=== PATIENT | male | born 1980 | race African-American/Black ===

== ENCOUNTER 2016-10-18 15:50 | Emergency (ER) | payer OTHER ==
[~2016-10-18] VITALS: Ht 190.5 cm; Wt 84.5 kg
[2016-10-18 15:58] VITALS: TEMP 37.4; Ht 190.5 cm; Wt 84.5 kg
[2016-10-18] MEDS ORDERED: SODIUM CHLORIDE 0.9% 1000ML 1,000 ML IV STA (16:15)
[2016-10-18] MEDS ORDERED: AMPICILLIN/SULBACTAM SOD INJ 3,000 MG in SODIUM CHLORIDE 0.9% 100ML 100 ML IV STA (16:15)
[2016-10-18] MEDS ORDERED: METHYLPREDNISOLONE 125 MG VIAL IV STA (16:15)
[2016-10-18] MEDS ORDERED: FLUO40CA8 PO (16:22)
[2016-10-18] MEDS ORDERED: GUAN1TAB PO (16:22)
[2016-10-18] MEDS ORDERED: OPTIRAY 320 IV PRN (16:30)
[2016-10-18] MEDS ORDERED: PHEN-601 PO (16:38)
[2016-10-18 16:42] LABS: BASO % 0.3 %; BASO ABS # 0.02 K/uL (0-0.2); COMPLETE YES; EOS % 1.4 %; HEMATOCRIT 40.2 % (42-52); IG% 0.3 %; LYMPH % 23.9 %; LYMPH ABS # 1.86 K/uL (1.2-3.4); MEAN CELL VOLUME 79.6 fL (80-100); MEAN CORPUSCULAR HEMOGLOBIN 27.3 pg (25-34); MEAN CORPUSCULAR HGB CONC 34.3 g/dl (32-36); MEAN PLATELET VOLUME 9.3 fL (7.4-10.4); MONO % 12.3 %; NEUT % 61.8 %; PLATELET COUNT 265 K/uL (130-400); RED BLOOD COUNT 5.05 M/uL (4.7-6.1); WHITE BLOOD COUNT 7.79 K/uL (4.8-10.8)
[2016-10-18 17:01] LABS: BUN/CREATININE RATIO 12.3 (10-20); CALCIUM 8.9 mg/dl (8.5-10.1); CREATININE 1.2 mg/dl (0.60-1.40); POTASSIUM 3.4 mmol/L (3.5-5.1)
--- NOTE | 2016-10-18 17:53 | DIAGNOSTIC IMAGING REPORT ---
CT soft tissue neck SOFT TISSUE NECK WITH CLINICAL HISTORY: right peritonsillar swelling, difficulty breathing dyspnea TECHNIQUE: Transaxial acquisition with multi axial reformatted images COMPARISON STUDY: None FINDINGS: Generalized right peritonsillar edematous change. Moderate displacement of the airway to the left. Uvula is unremarkable. Colonic and subglottic regions are unremarkable. Salivary glands are normal. The small reactive cervical nodes. Moderate mucosal thickening right maxillary sinus. To early phlegmon is type collections of the right tonsillar region measuring 1.5 and 1.0 cm respectively. IMPRESSION: 1. Rather significant right peritonsillar and tonsillar edematous change with moderate airway compromise and displacement of the hypopharyngeal airway to the left. 2. The area of edematous changes demonstrates 2 somewhat low density phlegmon type collections measuring 1.5 and 1.0 cm 3. Mild reactive cervical adenopathy. 4. Study is otherwise negative. Electronically signed by: Vito Hernández M.D. 10/18/2016 5:51 PM Dictated Date/Time: 10/18/2016 5:46 PM
[2016-10-18] MEDS ORDERED: MoRPHine SULFATE 10 MG/ML CARP/VIAL IV STA (18:32)
[2016-10-18] MEDS ORDERED: MoRPHine SULFATE 4 MG/ML 1 ML CARP\\VIAL ONE (18:38)
[2016-10-18] MEDS ORDERED: MoRPHine SULFATE 2 MG/ML CARP ONE (18:38)
[2016-10-18] MEDS ORDERED: LIDOCAINE/EPINEPHRINE 1% 20 ML VIAL INFIL ONE (18:45)
--- NOTE | 2016-10-18 19:11 | EMERGENCY ROOM VISIT NOTE ---
History First contact with patient: 16:01 Chief Complaint: THROAT PAIN/INJURY Stated Complaint: DIZZINESS, EAR PAIN, THROAT AND GLANDS SWOLLEN History of Present Illness The patient is a 36 year old male who presents to the Emergency Room with complaints of sore throat, earaches and dizziness. The patient states he has had a sore throat for 3 days. He has had difficulty swallowing and difficulty breathing due to the pain. He has not seen any other medical providers regarding this. He rates his overall discomfort a 7/10. He states that his voice sounds different. He denies any trismus. He also reports he has pain in both of his years and some pain in the right side of his neck. He denies any fevers/chills, cough, nausea, vomiting, or headaches. Review of Systems A complete 10-point Review of Systems was discussed with the patient, with pertinent positives and negatives listed in the History of Present Illness. All remaining Review of Systems questions can be considered negative unless otherwise specified. Past Medical/Surgical History Medical Problems: (1) Boxer's metacarpal fracture, neck, closed (2) Tonsillitis (3) Ulcer Family History Cancer Diabetes mellitus Hypertension Social History Smoking Status: Current Every Day Smoker Alcohol Use: none Marital Status: , in relationship Housing Status: lives with significant other Occupation Status: unemployed Current/Historical Medications Scheduled Clindamycin Hcl (Cleocin), 300 MG PO QID Phenylephrine W/ Acetaminophen (Tylenol Sinus Congestion), 2 TAB PO Q4 Prednisone Tab (Prednisone), 10 MG PO UD Allergies Coded Allergies: No Known Allergies (Unverified , 10/18/16) Physical Exam Vital Signs Date Time Temp Pulse Resp B/P Pulse Ox O2 Delivery O2 Flow Rate FiO2 10/18/16 19:33 75 16 145/113 99 Room Air 10/18/16 16:00 100 Room Air 10/18/16 15:58 37.4 87 18 96 Room Air Physical Exam VITALS: Vitals are noted on the nurse's note and reviewed by myself. Vital signs stable. GENERAL: This is a 36-year-old male, in no acute distress, nondiaphoretic, well- developed well-nourished. SKIN: The skin was without rashes. EARS: External auditory canals clear, tympanic membranes pearly wolf without erythema or effusion bilaterally. EYES: Pupils equal round and reactive to light and accommodation. MOUTH: Mucous membranes moist. There is significant enlargement of the right tonsillar region with uvula deviation to the left. There are no exudates present. The airway is patent. NECK: Supple without nuchal rigidity. There is mild edema and tenderness of the right side of the neck. HEART: Regular rate and rhythm without murmurs gallops or rubs. LUNGS: Clear to auscultation bilaterally without wheezes, rales or rhonchi. ABDOMEN: Positive bowel sounds x 4. Soft, nontender, without masses or organomegaly. NEURO: Patient was alert and oriented to person place and time. Medical Decision & Procedures ER Provider Diagnostic Interpretation: CT soft tissue neck SOFT TISSUE NECK WITH CLINICAL HISTORY: right peritonsillar swelling, difficulty breathing dyspnea TECHNIQUE: Transaxial acquisition with multi axial reformatted images COMPARISON STUDY: None FINDINGS: Generalized right peritonsillar edematous change. Moderate displacement of the airway to the left. Uvula is unremarkable. Colonic and subglottic regions are unremarkable. Salivary glands are normal. The small reactive cervical nodes. Moderate mucosal thickening right maxillary sinus. To early phlegmon is type collections of the right tonsillar region measuring 1.5 and 1.0 cm respectively. IMPRESSION: 1. Rather significant right peritonsillar and tonsillar edematous change with moderate airway compromise and displacement of the hypopharyngeal airway to the left. 2. The area of edematous changes demonstrates 2 somewhat low density phlegmon type collections measuring 1.5 and 1.0 cm 3. Mild reactive cervical adenopathy. 4. Study is otherwise negative. Laboratory Results 10/18/16 16:30 Red Blood Count 5.05, Mean Corpuscular Volume 79.6, Mean Corpuscular Hemoglobin 27.3, Mean Corpuscular Hemoglobin Concent 34.3, Mean Platelet Volume 9.3, Neutrophils (%) (Auto) 61.8, Lymphocytes (%) (Auto) 23.9, Monocytes (%) (Auto) 12.3, Eosinophils (%) (Auto) 1.4, Basophils (%) (Auto) 0.3, Neutrophils # (Auto ) 4.82, Lymphocytes # (Auto) 1.86, Monocytes # (Auto) 0.96, Eosinophils # (Auto ) 0.11, Basophils # (Auto) 0.02 10/18/16 16:30 Test 10/18/16 16:30 White Blood Count 7.79 K/uL (4.8-10.8) Red Blood Count 5.05 M/uL (4.7-6.1) Hemoglobin 13.8 g/dL (14.0-18.0) Hematocrit 40.2 % (42-52) Mean Corpuscular Volume 79.6 fL (80-100) Mean Corpuscular Hemoglobin 27.3 pg (25-34) Mean Corpuscular Hemoglobin Concent 34.3 g/dl (32-36) Platelet Count 265 K/uL (130-400) Mean Platelet Volume 9.3 fL (7.4-10.4) Neutrophils (%) (Auto) 61.8 % Lymphocytes (%) (Auto) 23.9 % Monocytes (%) (Auto) 12.3 % Eosinophils (%) (Auto) 1.4 % Basophils (%) (Auto) 0.3 % Neutrophils # (Auto) 4.82 K/uL (1.4-6.5) Lymphocytes # (Auto) 1.86 K/uL (1.2-3.4) Monocytes # (Auto) 0.96 K/uL (0.11-0.59) Eosinophils # (Auto) 0.11 K/uL (0-0.5) Basophils # (Auto) 0.02 K/uL (0-0.2) RDW Standard Deviation 39.9 fL (36.4-46.3) RDW Coefficient of Variation 13.9 % (11.5-14.5) Immature Granulocyte % (Auto) 0.3 % Immature Granulocyte # (Auto) 0.02 K/uL (0.00-0.02) Anion Gap 10.0 mmol/L (3-11) Est Creatinine Clear Calc Drug Dose 100.7 ml/min Estimated GFR () 89.0 Estimated GFR (Non- 76.8 BUN/Creatinine Ratio 12.3 (10-20) Calcium Level 8.9 mg/dl (8.5-10.1) Monoscreen NEG (NEG) Medications Administered Medications (Trade) Dose Ordered Sig/Shaun Route Start Time Stop Time Status Last Admin Dose Admin Sodium Chloride 1,000 ml @ 999 mls/hr Q1H1M STAT IV 10/18/16 16:15 10/18/16 17:15 DC 10/18/16 16:41 999 MLS/HR Ampicillin Sodium/ Sulbactam Sodium/ Sodium Chloride (Unasyn Inj/Nss 100ml) 108 ml @ 200 mls/hr NOW STAT IV 10/18/16 16:15 10/18/16 16:47 DC 10/18/16 16:41 200 MLS/HR Methylprednisolone Sodium Succinate (Solu-Medrol IV) 125 mg NOW STAT IV 10/18/16 16:15 10/18/16 16:20 DC 10/18/16 16:41 125 MG Morphine Sulfate (MoRPHine SULFATE INJ) 2 mg STK-MED ONCE .ROUTE 10/18/16 18:38 10/18/16 18:40 DC 10/18/16 18:52 2 MG Morphine Sulfate (MoRPHine SULFATE INJ) 4 mg STK-MED ONCE .ROUTE 10/18/16 18:38 10/18/16 18:40 DC 10/18/16 18:49 4 MG Medical Decision Differential diagnosis includes peritonsillar abscess, retropharyngeal abscess, pharyngitis, cellulitis, among others. The patient was evaluated as above. Labs were drawn and IV access was obtained. Imaging studies were performed and read by radiology as above. The patient was medicated as above. The patient was reassessed multiple times during their stay in the emergency department and remained in stable condition. The patient is a 36-year-old male who presents today complaining of sore throat. Physical exam revealed a significantly swollen Labs right tonsillar region consistent with possible peritonsillar abscess. Labs were unremarkable. The patient was given a dose of Unasyn and Solu-Medrol. He was given morphine for pain. Due to the patient's complaint of difficulty breathing and swelling of the neck, a CT scan of the neck was performed with IV contrast. This did show evidence of swelling and airway compromise, but no obvious abscess. I did speak with Dr. Brian, the on-call ENT surgeon, who reviewed the CT scan and did feel that this represented an abscess. He evaluated the patient and performed incision and drainage of a right peritonsillar abscess. Please see his dictation for further information. He felt the patient could be discharged home with close follow-up in the office tomorrow. The patient was placed on clindamycin and prednisone per his recommendations. Based on the patient's presentation, lab results, and imaging studies, I feel the patient is stable for outpatient treatment. The patient's case was reviewed with Dr. Ramirez, ED attending physician, who agreed with my assessment and treatment plan. Discharge instructions were reviewed with the patient. The patient verbalized understanding of my assessment and treatment plan and was discharged home in good condition. Impression Primary Impression: Peritonsillar abscess Departure Information Dispostion Home / Self-Care Condition GOOD Prescriptions Prednisone Tab (PREDNISONE) 10 Mg Tab 10 MG PO UD, #42 TAB 40 mg po BID 2 days, 30 mg BID 2 days, 20 mg BID x2 days, 10 mg BID x2 days, 10mg QAM x2 days Prov: Kaelyn Lomeli PA-C 10/18/16 Clindamycin Hcl (CLEOCIN) 300 Mg Cap 300 MG PO QID for 14 Days, #56 CAP Prov: Kaelyn Lomeli PA-C 10/18/16 Referrals No Doctor, Assigned (PCP) Raymond Brian MD Patient Instructions My [facility] Additional Instructions You were prescribed clindamycin to be taken 4 times daily for 14 days. This is an antibiotic. All antibiotics have the potential to cause diarrhea. Stop this medication and contact a medical provider if you were to develop any significant adverse side effects including: wheezing, shortness of breath, passing out, vomiting, or a diffuse rash. Always take antibiotics as directed and COMPLETE the ENTIRE course regardless of the improvement of your symptoms. You have been prescribed Prednisone. It is best to take steroids early in the morning as PM dosing can affect your sleeping patterns. For pain control, you can use the following [id number] medicines (if >12 yo): - Regular strength (325mg/tab) Tylenol (acetaminophen) 2 tabs every 4-6 hours as needed. Do not exceed 12 tablets in a 24 hour period. Avoid taking more than 4 grams (4000 mg) of Tylenol per day. This includes any other sources of acetaminophen you may take on a regular basis. - Regular strength (200 mg/tab) Advil (ibuprofen) 1-2 tabs every 4-6 hours as needed. Do not exceed a dose of 3200 mg per day. Follow-up with Dr. Brian tomorrow in the office at 1 PM. Return to the emergency department with any difficulty breathing, or any other new/concerning symptoms.
[2016-10-18] MEDS ORDERED: PRED10TA PO (19:20)
[2016-10-18] MEDS ORDERED: CLIN300C2 PO (19:20)
[2016-10-18 19:33] VITALS: BP 145/113; PULSE 75; O2SAT 99
--- NOTE | 2016-10-19 00:23 | ENT CONSULTATION ---
DATE OF CONSULTATION: 10/18/2016 I have been asked by Dr. De La Rosa as well as physician program assistant, Kaelyn Lomeli, to evaluate this patient with possible right peritonsillar abscess. HISTORY OF PRESENT ILLNESS: The patient is a 36-year-old male, with a 3 to 4-day history of right-sided sore throat with referred otalgia, odynophagia, dysphagia and muffled voice, who presented to the [facility] Emergency Room and a CT scan of the neck with IV contrast was obtained, which revealed a possible right peritonsillar abscess with 2 fluid collections, measuring 1.5 cm and 1 cm superiorly and inferiorly respectively. The patient did not have any antibiotics or steroids prior to presentation to the Emergency Room. He has no history of peritonsillar abscess in the past or history of recurrent strep throat. ALLERGIES: No known drug allergies. MEDICATIONS: Upon admission, [id number] Tylenol Cold and Sinus. PAST MEDICAL HISTORY: None. PAST SURGICAL HISTORY: Status post left knee surgery. FAMILY HISTORY: Noncontributory. No bleeding disorders or malignant hyperthermia. SOCIAL HISTORY: The patient is and in a relationship and lives with his significant other. He is currently unemployed. He smokes 1 pack per day and has done so for 20 years. He drinks alcohol occasionally. He denies illicit drug use. PHYSICAL EXAMINATION: GENERAL: This is an -Finnish male, in no acute distress, with no stertor or stridor, but with a muffled voice. ENT: External auditory canals and tympanic membranes are clear bilaterally. Nasal examination reveals moderate bilateral inferior turbinate hypertrophy and no significant septal deviation. Oral cavity, oropharyngeal examination reveals mild trismus. He has a 4+ right tonsil and a 2 to 3+ left tonsil with right peritonsillar edema and uvular deviation to the left. There is an exudate overlying the right tonsil. There is tender upper jugular digastric lymphadenopathy on the right-hand side. NEUROLOGIC: Cranial nerves II-XII are grossly intact. The patient is awake, alert and oriented x3. PROCEDURE NOTE: After verbally obtaining informed consent, the oral cavity and oropharynx were anesthetized with Cetacaine spray. After allowing adequate time for anesthesia, 1.5 mL of 1% lidocaine with 1:100,000 epinephrine was used to inject the right peritonsillar space. An 18-gauge needle on a 10-mL syringe was then used to aspirate approximately 2 mL of purulent material, which was sent off for Gram stain and culture. A #11 scalpel was then used to make a transverse incision in the soft palate. Further lidocaine was instilled through the soft palate transverse incision. A curved tonsil clamp was then used to spread the right peritonsillar space and approximately 1-2 more mL of purulent material was obtained. The patient did have significant amount of oozing of blood from the inflammation, but then this stopped. Estimated blood loss was 10 mL. The patient stated that he was "50% better" after the procedure. IMPRESSION AND RECOMMENDATIONS: Right peritonsillar abscess, status post incision and drainage. I feel like the patient can be discharged to home on appropriate antibiotic therapy of clindamycin 300 mg p.o. q 6 hours for 14 days and prednisone 40 mg p.o. b.i.d. for 2 days, followed by 30 mg p.o. b.i.d. x2 days, followed by 20 mg p.o. b.i.d. for 2 days, followed by 10 mg p.o. b.i.d. for 2 days, followed by 10 mg daily for 2 days. I would like to see him back in my office tomorrow at 1:00 p.m. for followup. The patient will call sooner, if he has any worsening symptomatology. This plan was discussed with Kaelyn Lomeli.
== END 2016-10-18 19:43 | disposition home or self-care (01) ==
LOC: C.EDB 15:51 → C.EDD 19:43
DX: J36 Peritonsillar abscess (principal); F17.210 Nicotine dependence, cigarettes, uncomplicated

== ENCOUNTER 2016-12-25 09:08 | Emergency (ER) | payer OTHER ==
[~2016-12-25] VITALS: Ht 190.5 cm; Wt 84.4 kg
[~2016-12-25 09:08] MED LIST: PHEN-601 PO; PRED10TA PO
[2016-12-25 09:12] VITALS: TEMP 36.5; Ht 190.5 cm; Wt 84.4 kg
[2016-12-25] MEDS ORDERED: SODIUM CHLORIDE 0.9% 1000ML 1,000 ML IV STA (09:24)
[2016-12-25 09:59] LABS: BASO % 0.3 %; BASO ABS # 0.01 K/uL (0-0.2); COMPLETE YES; EOS % 5.5 %; HEMATOCRIT 39.2 % (42-52); LYMPH % 46.4 %; LYMPH ABS # 1.78 K/uL (1.2-3.4); MEAN CELL VOLUME 82.4 fL (80-100); MEAN CORPUSCULAR HEMOGLOBIN 27.5 pg (25-34); MEAN CORPUSCULAR HGB CONC 33.4 g/dl (32-36); MEAN PLATELET VOLUME 9.6 fL (7.4-10.4); MONO % 13.8 %; PLATELET COUNT 244 K/uL (130-400); RED BLOOD COUNT 4.76 M/uL (4.7-6.1); WHITE BLOOD COUNT 3.84 K/uL (4.8-10.8)
[2016-12-25 10:16] LABS: BUN/CREATININE RATIO 8.2 (10-20); CALCIUM 8.6 mg/dl (8.5-10.1); CREATININE 1.2 mg/dl (0.60-1.40); POTASSIUM 3.8 mmol/L (3.5-5.1)
--- NOTE | 2016-12-25 10:17 | DIAGNOSTIC IMAGING REPORT ---
NECK/THYROID ULTRASOUND HISTORY: anterior throat pain COMPARISON: Neck CT 10/18/2016. FINDINGS: No sonographic abnormality within the right anterior neck at the patient's area of pain. Normal thyroid gland. No lymphadenopathy or fluid collections identified. IMPRESSION: No sonographic abnormality within the neck. Electronically signed by: Pastor Sow M.D. 12/25/2016 10:16 AM Dictated Date/Time: 12/25/2016 10:14 AM
[2016-12-25 10:26] LABS: THYROID STIMULATING HORMONE 0.855 uIu/ml (0.300-4.500)
[2016-12-25 10:57] VITALS: BP 153/98; PULSE 59; O2SAT 100
--- NOTE | 2016-12-25 17:50 | EMERGENCY ROOM VISIT NOTE ---
History First contact with patient: : Chief Complaint: THROAT PAIN/INJURY Stated Complaint: SORE THROAT/HX ABSCESS History of Present Illness The patient is a 36 year old -[place] male who presents to the Emergency Room with complaints of a sore throat and feeling dehydrated. He has had a sore throat for the last several days. It has become worse with time. He is getting concerned because he had a peritonsillar abscess in September that required drainage. He denies any fevers but does have chills. No sweats. No cough, shortness of breath, or abdominal pain. He points to the anterior throat as his area of worst discomfort. No treatment yet. His girlfriend states that he has significant intolerance to cold. Patient also notes that his younger brother has thyroid problems and he is concerned he may also have thyroid issues. Review of Systems REVIEW OF SYSTEM: HEENT: No dizziness, visual problems, hearing loss, or tinnitus. No oral lesions are present. LYMPH: No adenopathy. PULMONARY: No cough, shortness of breath, sputum production or hemoptysis. CARDIOVASCULAR: No chest pain, palpitations, shortness of breath or peripheral edema. GASTROINTESTINAL: No diarrhea, constipation, nausea, vomiting, or abdominal pain. GENITOURINARY: No dysuria, frequency, urgency or nocturia. NEUROLOGIC: No weakness, muscle tenderness, epilepsy or history of neurological problems. MUSCULOSKELETAL: No history of joint tenderness/swelling. No history of arthritis or arthralgias. SKIN: No rashes or lesions. PSYCHIATRIC: No history of depression or mental illness. ENDOCRINE: No history of diabetes, thyroid disorders, or abnormal hair growth. Past Medical/Surgical History Medical Problems: (1) Boxer's metacarpal fracture, neck, closed (2) Tonsillitis (3) Ulcer Family History Cancer Diabetes mellitus Hypertension Social History Smoking Status: Current Every Day Smoker Smokeless Tobacco Use: No Alcohol Use: none Drug Use: none Marital Status: , in relationship Housing Status: lives with significant other Occupation Status: unemployed Current/Historical Medications No Active Prescriptions or Reported Meds Allergies Coded Allergies: No Known Allergies (Unverified , 12/25/16) Physical Exam Vital Signs Date Time Temp Pulse Resp B/P Pulse Ox O2 Delivery O2 Flow Rate FiO2 12/25/16 10:57 59 18 153/98 100 12/25/16 09:12 36.5 64 18 158/95 97 Room Air Pain Rating (0-10): 7.0 Physical Exam Gen.: Well-developed, well-nourished, young -[place] male, in no acute distress. Laying on a bed. Alert and oriented. Skin:Warm and dry with good turgor. No rashes or lesions. No ecchymosis or erythema. The patient is not diaphoretic. No abrasions. HEENT: Normocephalic atraumatic. Eyes PERRLA, EOMI. No conjunctiva or scleral injection. Ears TMs intact bilaterally with good light reflexes. No erythema or bulging. No hemotympanum. Canals are patent. Nares patent bilaterally without turbinate enlargement. No significant drainage. No epistaxis. Oropharynx with erythema but no exudate. Uvula midline, oral mucosa moist. Tonsils are not enlarged. No lesions present. Lymphatics are palpated with anterior chain enlargement and tenderness. No posterior chain enlargement or tenderness. Poor dentition with multiple decaying teeth. No indication of abscess. Heart: Heart RRR. No MGR. No carotid bruit. Peripheral pulses are 2+. Lungs: Lungs are clear to auscultation. No crackles rhonchi or wheezing. Good air movement. The patient is able to take a deep breath. Musculoskeletal: Gross motor function of the upper and lower extremities is intact and unremarkable. Thyroid: Palpated without nodularity. It does seem broad and perhaps slightly larger than usual. Medical Decision & Procedures ER Provider Diagnostic Interpretation: Ultrasound of the soft tissues of the neck was obtained. This was read by radiology as unremarkable for any acute changes. No nodularity. No edema. Laboratory Results 12/25/16 09:40 Red Blood Count 4.76, Mean Corpuscular Volume 82.4, Mean Corpuscular Hemoglobin 27.5, Mean Corpuscular Hemoglobin Concent 33.4, Mean Platelet Volume 9.6, Neutrophils (%) (Auto) 34.0, Lymphocytes (%) (Auto) 46.4, Monocytes (%) (Auto) 13.8, Eosinophils (%) (Auto) 5.5, Basophils (%) (Auto) 0.3, Neutrophils # (Auto ) 1.31, Lymphocytes # (Auto) 1.78, Monocytes # (Auto) 0.53, Eosinophils # (Auto ) 0.21, Basophils # (Auto) 0.01 12/25/16 09:40 Test 12/25/16 09:40 White Blood Count 3.84 K/uL (4.8-10.8) Red Blood Count 4.76 M/uL (4.7-6.1) Hemoglobin 13.1 g/dL (14.0-18.0) Hematocrit 39.2 % (42-52) Mean Corpuscular Volume 82.4 fL (80-100) Mean Corpuscular Hemoglobin 27.5 pg (25-34) Mean Corpuscular Hemoglobin Concent 33.4 g/dl (32-36) Platelet Count 244 K/uL (130-400) Mean Platelet Volume 9.6 fL (7.4-10.4) Neutrophils (%) (Auto) 34.0 % Lymphocytes (%) (Auto) 46.4 % Monocytes (%) (Auto) 13.8 % Eosinophils (%) (Auto) 5.5 % Basophils (%) (Auto) 0.3 % Neutrophils # (Auto) 1.31 K/uL (1.4-6.5) Lymphocytes # (Auto) 1.78 K/uL (1.2-3.4) Monocytes # (Auto) 0.53 K/uL (0.11-0.59) Eosinophils # (Auto) 0.21 K/uL (0-0.5) Basophils # (Auto) 0.01 K/uL (0-0.2) RDW Standard Deviation 44.2 fL (36.4-46.3) RDW Coefficient of Variation 14.6 % (11.5-14.5) Immature Granulocyte % (Auto) 0.0 % Immature Granulocyte # (Auto) 0.00 K/uL (0.00-0.02) Anion Gap 5.0 mmol/L (3-11) Est Creatinine Clear Calc Drug Dose 100.6 ml/min Estimated GFR () 89.0 Estimated GFR (Non- 76.8 BUN/Creatinine Ratio 8.2 (10-20) Calcium Level 8.6 mg/dl (8.5-10.1) Thyroid Stimulating Hormone (TSH) 0.855 uIu/ml (0.300-4.500) CBC, PRP, and TSH were obtained. They are all unremarkable. Rapid strep was negative. Back up cultures were sent. Medications Administered Medications (Trade) Dose Ordered Sig/Shaun Route Start Time Stop Time Status Last Admin Dose Admin Sodium Chloride (Nss 1000ml) 1,000 ml @ 999 mls/hr Q1H1M STAT IV 12/25/16 09:24 12/25/16 10:24 DC 12/25/16 09:42 999 MLS/HR 1 L normal sterile saline IV bolus. ED Course Patient was educated regarding today's findings. Conservative care measures were discussed. IV was established. Labs were obtained. He was hydrated with 1 L normal sterile saline IV bolus. Ultrasound of the neck was obtained. This was unremarkable. Rapid strep obtained today was negative. Back up cultures were sent. He'll be called if they are positive. Patient was reassured that I do not suspect thyroid issues at this time. I do not suspect an abscess. Possibility of viral pharyngitis versus strep pharyngitis were discussed. Symptomatic treatment was recommended. Continue Tylenol and Motrin every 6 hours as needed. Sore throat handout was provided. Medical Decision Possibility of strep pharyngitis, viral pharyngitis, peritonsillar abscess, sinusitis, thyroglossal duct cyst, hypothyroidism, hyperthyroidism, goiter, and infected dentition were all considered. Impression Primary Impression: Pharyngitis, acute Departure Information Dispostion Home / Self-Care Condition GOOD Prescriptions No Active Prescriptions or Reported Meds Forms WORK / SCHOOL INSTRUCTIONS, HOME CARE DOCUMENTATION FORM, MOTRIN USE, TYLENOL USE, IMPORTANT VISIT INFORMATION Patient Instructions My [facility] Additional Instructions Maintain hydration Cepacol lozenges may improve your comfort Tylenol and Motrin every 6 hours as needed for discomfort You will be called within 48 hours if the strep test returns positive Follow-up with your PCP as needed
== END 2016-12-25 10:59 | disposition home or self-care (01) ==
LOC: C.EDB 09:09 → C.EDA 10:59
DX: J02.9 Acute pharyngitis, unspecified (principal); F17.200 Nicotine dependence, unspecified, uncomplicated; Z87.81 Personal history of (healed) traumatic fracture; Z87.19 Personal history of other diseases of the digestive system; Z80.9 Family history of malignant neoplasm, unspecified; Z83.3 Family history of diabetes mellitus; Z82.49 Family history of ischemic heart disease and other diseases of the circulatory system

== ENCOUNTER 2017-02-12 19:15 | Emergency (ER) | payer OTHER ==
[~2017-02-12] VITALS: Ht 190.5 cm; Wt 82.9 kg
[2017-02-12 19:18] VITALS: TEMP 36.6; Ht 190.5 cm; Wt 82.9 kg
[2017-02-12] MEDS ORDERED: FAMOTIDINE 20MG/102 ML D5W IV STA (19:29)
[2017-02-12] MEDS ORDERED: DiphenhydrAMINE HCL 50 MG/ML VIAL IV STA (19:29)
[2017-02-12] MEDS ORDERED: METHYLPREDNISOLONE 125 MG VIAL IV STA (19:29)
[2017-02-12] MEDS ORDERED: ALBUT/IPRATROP 3MG/0.5MG NEB 3 ML VIAL INH ONE (19:30)
[2017-02-12 19:42] VITALS: PULSE 78; O2SAT 98
[2017-02-12 19:52] VITALS: O2SAT 98
[2017-02-12 19:57] LABS: BASO % 0.2 %; BASO ABS # 0.01 K/uL (0-0.2); COMPLETE YES; EOS % 9.3 %; HEMATOCRIT 39.8 % (42-52); IG% 0.2 %; LYMPH % 47.9 %; LYMPH ABS # 2.42 K/uL (1.2-3.4); MEAN CELL VOLUME 82.6 fL (80-100); MEAN CORPUSCULAR HEMOGLOBIN 26.8 pg (25-34); MEAN CORPUSCULAR HGB CONC 32.4 g/dl (32-36); MEAN PLATELET VOLUME 9.2 fL (7.4-10.4); MONO % 7.1 %; NEUT % 35.3 %; PLATELET COUNT 272 K/uL (130-400); RED BLOOD COUNT 4.82 M/uL (4.7-6.1); WHITE BLOOD COUNT 5.05 K/uL (4.8-10.8)
[2017-02-12 20:12] LABS: PARTIAL THROMBOPLASTIN RATIO 1.1; PROTHROMBIN TIME (PATIENT) 10.5 SECONDS (9.0-12.0)
[2017-02-12 20:17] LABS: BUN/CREATININE RATIO 8.5 (10-20); CALCIUM 8.5 mg/dl (8.5-10.1); CREATININE 1.2 mg/dl (0.60-1.40); POTASSIUM 4.1 mmol/L (3.5-5.1)
--- NOTE | 2017-02-12 20:27 | DIAGNOSTIC IMAGING REPORT ---
CHEST ONE VIEW PORTABLE CLINICAL HISTORY: eval for pnea dyspnea COMPARISON STUDY: No previous studies for comparison. FINDINGS: The bones soft tissues and hemidiaphragms are normal. The cardiomediastinal silhouette is normal. The lungs are clear. The pulmonary vasculature is normal. IMPRESSION: Negative chest. Electronically signed by: Vito Hernández M.D. 02/12/2017 8:25 PM Dictated Date/Time: 02/12/2017 8:25 PM
[2017-02-12] MEDS ORDERED: EPINEPHRINE ADULT AUTO-INJECT 0.3 MG SYR IM STA (21:46)
[2017-02-12] MEDS ORDERED: PRED20TA PO (21:55)
[2017-02-12] MEDS ORDERED: ALBUTEROL HFA 8 GM INHALER INH ONE (22:00)
[2017-02-12 22:12] VITALS: BP 133/81; PULSE 79; O2SAT 99
--- NOTE | 2017-02-12 22:29 | EMERGENCY ROOM VISIT NOTE ---
History Report prepared by James: Tiesha Wise Under the Supervision of: Dr. Emanuel Jade M.D. First contact with patient: 19:20 Chief Complaint: RESPIRATORY PROBLEMS Stated Complaint: EXTREME DIFFICULTY BREATHING History of Present Illness The patient is a 36 year old male who presents to the Emergency Room with complaints of worsening respiratory problems since last night. The patient started experiencing chest pain last night. He states that it feels like someone is sitting on his chest. He also reports feeling very short of breath. The patient states that he typically experiences symptoms like this when he is exposed to cats and dogs. He had allergy testing as a child and is sensitive to both cats and dogs. Right now he has cats and dogs at home, which his daughter states are emotional support animals. He typically uses an albuterol inhaler when he experiences these symptoms and that helps to alleviate them. The patient states that the inhaler ran out. He also smokes about 1 pack of cigarettes per day. The patient rates his current pain as a 7/10 in severity. He states that this feels like his typical allergic reaction. He denies any personal history of asthma. He denies any family history of heart disease. The patient also denies any leg pain or swelling, recent long trips, and any recent surgeries. He denies any swelling to his tongue or throat. Source of History: patient, family Onset: last night Position: chest Symptom Intensity: 7/10 Timing: worsening Modifying Factors (Worsening): other (exposure to cats and dogs) Modifying Factors (Relieving): other (albuterol inhaler) Associated Symptoms: + chest pain, + SOB Note: He denies any personal history of asthma. He denies any family history of heart disease. The patient also denies any leg pain or swelling, recent long trips, and any recent surgeries. Review of Systems See HPI for pertinent positives & negatives. A total of 10 systems reviewed and were otherwise negative. Past Medical & Surgical Medical Problems: (1) Boxer's metacarpal fracture, neck, closed (2) Tonsillitis (3) Ulcer Family History Cancer Diabetes mellitus Hypertension Social History Smoking Status: Current Every Day Smoker Alcohol Use: none Drug Use: none Marital Status: , in relationship Housing Status: lives with significant other Occupation Status: unemployed Current/Historical Medications Scheduled Prednisone (Prednisone), 0 PO DAILY Allergies Coded Allergies: No Known Allergies (Unverified , 12/25/16) Physical Exam Vital Signs Date Time Temp Pulse Resp B/P (MAP) Pulse Ox O2 Delivery O2 Flow Rate FiO2 02/12/17 22:12 79 18 133/81 99 02/12/17 20:33 83 20 131/109 99 Nebulizer 9.0 02/12/17 20:26 74 02/12/17 19:52 98 Room Air 02/12/17 19:42 78 18 98 Room Air 02/12/17 19:18 36.6 83 22 165/103 98 Room Air Physical Exam Constitutional: Vital signs reviewed. Eyes: Pupils are equal round reactive to light. Conjunctiva are noninjected. ENT: Pharynx is clear without erythema or exudate. Mucous membranes are moist. Neck supple without meningeal signs. Respiratory: Diffuse expiratory wheezing bilaterally. No stridor. Breath sounds are equal bilaterally. Cardiovascular: Regular rate and rhythm. No rubs or gallops. GI: Soft, nondistended and nontender. Bowel sounds are present. Musculoskeletal: No peripheral edema. No lower extremity tenderness. Integumentary: No cyanosis. Neurological: The patient is awake and alert. No focal deficits. Psychiatric: Somewhat anxious. Medical Decision & Procedures ER Provider Diagnostic Interpretation: Radiology results as stated below per my review and the radiologist's interpretation: CHEST ONE VIEW PORTABLE CLINICAL HISTORY: eval for pnea dyspnea COMPARISON STUDY: No previous studies for comparison. FINDINGS: The bones soft tissues and hemidiaphragms are normal. The cardiomediastinal silhouette is normal. The lungs are clear. The pulmonary vasculature is normal. IMPRESSION: Negative chest. Electronically signed by: Vito Hernández M.D. 02/12/2017 8:25 PM Dictated Date/Time: 02/12/2017 8:25 PM Laboratory Results 02/12/17 19:45 Red Blood Count 4.82, Mean Corpuscular Volume 82.6, Mean Corpuscular Hemoglobin 26.8, Mean Corpuscular Hemoglobin Concent 32.4, Mean Platelet Volume 9.2, Neutrophils (%) (Auto) 35.3, Lymphocytes (%) (Auto) 47.9, Monocytes (%) (Auto) 7.1, Eosinophils (%) (Auto) 9.3, Basophils (%) (Auto) 0.2, Neutrophils # (Auto) 1.78, Lymphocytes # (Auto) 2.42, Monocytes # (Auto) 0.36, Eosinophils # (Auto) 0.47, Basophils # (Auto) 0.01 02/12/17 19:45 Test 02/12/17 19:45 02/12/17 21:38 White Blood Count 5.05 K/uL (4.8-10.8) Red Blood Count 4.82 M/uL (4.7-6.1) Hemoglobin 12.9 g/dL (14.0-18.0) Hematocrit 39.8 % (42-52) Mean Corpuscular Volume 82.6 fL (80-100) Mean Corpuscular Hemoglobin 26.8 pg (25-34) Mean Corpuscular Hemoglobin Concent 32.4 g/dl (32-36) Platelet Count 272 K/uL (130-400) Mean Platelet Volume 9.2 fL (7.4-10.4) Neutrophils (%) (Auto) 35.3 % Lymphocytes (%) (Auto) 47.9 % Monocytes (%) (Auto) 7.1 % Eosinophils (%) (Auto) 9.3 % Basophils (%) (Auto) 0.2 % Neutrophils # (Auto) 1.78 K/uL (1.4-6.5) Lymphocytes # (Auto) 2.42 K/uL (1.2-3.4) Monocytes # (Auto) 0.36 K/uL (0.11-0.59) Eosinophils # (Auto) 0.47 K/uL (0-0.5) Basophils # (Auto) 0.01 K/uL (0-0.2) RDW Standard Deviation 45.0 fL (36.4-46.3) RDW Coefficient of Variation 14.7 % (11.5-14.5) Immature Granulocyte % (Auto) 0.2 % Immature Granulocyte # (Auto) 0.01 K/uL (0.00-0.02) Prothrombin Time 10.5 SECONDS (9.0-12.0) Prothromb Time International Ratio 1.0 (0.9-1.1) Activated Partial Thromboplast Time 28.4 SECONDS (21.0-31.0) Partial Thromboplastin Ratio 1.1 Anion Gap 6.0 mmol/L (3-11) Est Creatinine Clear Calc Drug Dose 98.8 ml/min Estimated GFR () 89.0 Estimated GFR (Non- 76.8 BUN/Creatinine Ratio 8.5 (10-20) Calcium Level 8.5 mg/dl (8.5-10.1) Bedside Troponin I < 0.030 ng/ml (0-0.045) Laboratory results as reviewed by me. Medications Administered Medications (Trade) Dose Ordered Sig/Shaun Route Start Time Stop Time Status Last Admin Dose Admin Albuterol/ Ipratropium (Duoneb) 12 ml ONE ONCE INH 02/12/17 19:30 02/12/17 19:31 DC 02/12/17 19:42 12 ML Methylprednisolone Sodium Succinate (Solu-Medrol IV) 125 mg NOW STAT IV 02/12/17 19:29 02/12/17 19:31 DC 02/12/17 19:52 125 MG Diphenhydramine HCl (Benadryl Inj) 50 mg NOW STAT IV 02/12/17 19:29 02/12/17 19:31 DC 02/12/17 19:52 50 MG Famotidine (Pepcid 20mg/100 ml) 20 mg ONE STAT IV 02/12/17 19:29 02/12/17 19:31 DC 02/12/17 19:52 20 MG ECG Indication: chest pain Rate (beats per minute): 83 Rhythm: normal sinus Findings: Q waves (V1, V2), no ectopy Comparison ECG Date: no prior available ED Course 1919: The patient was evaluated in room B12B. A complete history and physical exam was performed. 1928: Famotidine 20 mg IV, Benadryl 50 mg IV, Solu-Medrol 125 mg IV 1929: DuoNeb 12 ml INH 2006: I reassessed the patient and his wheezing has significantly decreased. I had a discussion with the patient about his animals. 2023: I updated the patient on the results of his blood tests. He is still getting his DuoNeb treatment. 2142: I reassessed the patient at this time. He has no wheezing or chest discomfort. His second troponin is running. I discussed the use of an epi pen with the patient and his family. states that she is going to get a HEPA air filter and someone else is coming to continuous pickling line pickler the animals and they are going to eventually get rid of them. 2145: Epipen 0.3 mg IM 2153: The patient's second troponin is 0 and he will be discharged home. 2199: Albuterol 2 puffs INH Medical Decision This is a 36-year-old male who presents with chest discomfort and shortness of breath. Differential diagnosis includes acute allergic reaction, anaphylaxis, reactive airway disease, asthma, COPD, acute coronary syndrome. I did perform a limited focused review of portions of the patient's old chart on the electronic medical record. The patient has had no recent pertinent visits to this hospital. Medication Reconciliation: I attest that I have personally reviewed the patient' s current medication list. Blood Pressure Screening: Patient was found to have an elevated blood pressure and was referred to their primary doctor for recheck and further treatment. I did evaluate the patient as noted above. The patient is presenting with chest discomfort and shortness of breath. He has a known allergy to cats and dogs but has had a cat and a dog in his household for at least 2 years. He states that he has had similar shortness of breath and chest discomfort when his allergies get worse. He usually uses his daughter's inhaler and feels better but the inhaler ran out. He is presenting with chest pain and shortness of breath which she states is consistent with his prior allergic reactions. IV access was established. The patient was placed on a continuous personnel monitor. I did order and personally review the patient's 12-lead EKG and chest x-ray as described above. His 12-lead EKG does not demonstrate any acute ischemia. His chest x-ray does not show any pneumonia. I did treat the patient with IV Solu-Medrol and Benadryl. He was also given IV Pepcid. I did give him a continuous hour-long nebulizer with albuterol and Atrovent. I did order and review the patient's blood work as noted in the electronic medical record. Troponin 2 is negative. I did reassess the patient multiple times. His wheezing has essentially resolved. I did discuss the test results with the patient and his family. I did recommend that he get rid of the animals and try to stay at a hotel or friends place tonight. They were unable to do so but the stated that the animals would be picked up by a friend and they will get a HEPA air filter to run continuously in his bedroom. I also recommended smoking cessation. I did carefully review instructions for follow up and return instructions. I also reviewed indications and usage of an EpiPen if needed. He was given an albuterol MDI as well and a prescription for prednisone. They were told to continue antihistamines at home. He was discharged in good condition. Impression Primary Impression: Acute allergic reaction Additional Impression: Acute chest pain Scribe Attestation The scribe's documentation has been prepared under my direct and personally reviewed by me in its entirety. I confirm that the note above accurately reflects all work, treatment, procedures, and medical decision making performed by me. Departure Information Dispostion Home / Self-Care Prescriptions Prednisone (Prednisone) 20 Mg Tab 0 PO DAILY, #14 TAB 3 TABS DAILY FOR 2 DAYS, THEN 2 TABS DAILY FOR 2 DAYS, THEN 1 TAB DAILY FOR 2 DAYS, THEN 1/2 TAB DAILY FOR 2 DAYS. Prov: Emanuel Jade M.D. 02/12/17 Referrals No Doctor, Assigned (PCP) Forms HOME CARE DOCUMENTATION FORM, IMPORTANT VISIT INFORMATION, WORK / SCHOOL INSTRUCTIONS Patient Instructions ED Allergic Reaction General Other, My [facility] [address] Additional Instructions You have been examined and treated today on an emergency basis only. This is not a substitute for, or an effort to provide, complete comprehensive medical care. It is impossible to recognize and treat all injuries or illnesses in a single emergency department visit. It is therefore important that you follow up closely with your physician. Call as soon as possible for an appointment. Return immediately for worsening symptoms or if you develop confusion, feeling like you are going to pass out, swelling to your throat or tongue or any other concerning symptoms. Talk to your doctor about smoking cessation. Problem Qualifiers Primary Impression: Acute allergic reaction Encounter type: initial encounter Qualified Codes: T78.40XA - Allergy, unspecified, initial encounter
== END 2017-02-12 22:13 | disposition home or self-care (01) ==
LOC: C.EDB 19:16
DX: T78.40XA Allergy, unspecified, initial encounter (principal); R07.9 Chest pain, unspecified; X58.XXXA Exposure to other specified factors, initial encounter; Z83.3 Family history of diabetes mellitus; Z82.49 Family history of ischemic heart disease and other diseases of the circulatory system; F17.200 Nicotine dependence, unspecified, uncomplicated

== ENCOUNTER → 2017-02-25 | Outpatient (CLI) | payer OTHER ==
[~2017-02-25] MED LIST changes: -PHEN-601 PO; -PRED10TA PO; +PRED20TA PO
[2017-02-25 15:19] LABS: ALT/SGPT 35 U/L (12-78); AST/SGOT 17 U/L (15-37); BLOOD UREA NITROGEN 11 mg/dl (7-18); BUN/CREATININE RATIO 9.4 (10-20); CALCIUM 8.8 mg/dl (8.5-10.1); CARBON DIOXIDE 28 mmol/L (21-32); CHLORIDE 107 mmol/L (98-107); CHOLESTEROL 159 mg/dl (0-200); GLUCOSE 83 mg/dl (70-99); POTASSIUM 3.9 mmol/L (3.5-5.1); SODIUM 141 mmol/L (136-145); TRIGLYCERIDES 150 mg/dl (0-150); VERY LOW DENSITY LIPOPROT CALC 30 mg/dl
[2017-02-25 15:22] LABS: ALB/GLOB RATIO 0.9 (0.9-2); ALKALINE PHOSPHATASE 108 U/L (45-117); CHOLESTEROL/HDL RATIO 4.4; HDL CHOLESTEROL 36 mg/dl
[2017-02-25 15:53] LABS: COMPLETE YES; EOSINOPHIL % 11.4 %; HEMATOCRIT 40.7 % (42-52); LYMPH ABS # 1.18 K/uL (1.2-3.4); LYMPHOCYTE % 32.5 %; MEAN CELL VOLUME 82.6 fL (80-100); MEAN CORPUSCULAR HEMOGLOBIN 27.8 pg (25-34); MEAN CORPUSCULAR HGB CONC 33.7 g/dl (32-36); NEUTROPHILS % 30.7 %; PLATELET COUNT 239 K/uL (130-400); RED BLOOD COUNT 4.93 M/uL (4.7-6.1); VARIANT LYMPHOCYTE % 19.3 %; WHITE BLOOD COUNT 3.62 K/uL (4.8-10.8)
== END | disposition home or self-care (01) ==
LOC: C.LABSPEC 14:23
PROVIDERS: ATTEND Internal Medicine
DX: E78.5 Hyperlipidemia, unspecified (principal); R07.89 Other chest pain

== ENCOUNTER → 2017-11-22 | Outpatient (CLI) | payer OTHER ==
[2017-11-22 17:06] LABS: HEMATOCRIT 37.4 % (42-52); HEMOGLOBIN 12.4 g/dL (14.0-18.0); MEAN CELL VOLUME 83.7 fL (80-100); MEAN CORPUSCULAR HEMOGLOBIN 27.7 pg (25-34); MEAN CORPUSCULAR HGB CONC 33.2 g/dl (32-36); MEAN PLATELET VOLUME 9.8 fL (7.4-10.4); PLATELET COUNT 247 K/uL (130-400); RED CELL DISTRIBUTION WIDTH CV 14.4 % (11.5-14.5); RED CELL DISTRIBUTION WIDTH SD 44.1 fL (36.4-46.3); WHITE BLOOD COUNT 4.52 K/uL (4.8-10.8)
[2017-11-22 17:16] LABS: ALT/SGPT 24 U/L (12-78); BLOOD UREA NITROGEN 11 mg/dl (7-18); CARBON DIOXIDE 27 mmol/L (21-32); CREATININE 1.31 mg/dl (0.60-1.40); GLUCOSE 90 mg/dl (70-99); LIPASE 108 U/L (73-393); SODIUM 136 mmol/L (136-145)
[2017-11-22 17:19] LABS: ALKALINE PHOSPHATASE 112 U/L (45-117); AST/SGOT 20 U/L (15-37); TOTAL PROTEIN 8.3 gm/dl (6.4-8.2)
[2017-11-22 18:59] LABS: BASO % 0.2 %; BASO ABS # 0.01 K/uL (0-0.2); EOS % 3.3 %; EOS ABS # 0.15 K/uL (0-0.5); IG# 0.01 K/uL (0.00-0.02); LYMPH % 52.4 %; LYMPH ABS # 2.37 K/uL (1.2-3.4); MONO % 10.2 %; MONO ABS # 0.46 K/uL (0.11-0.59); NEUT % 33.7 %; NEUT ABS # 1.52 K/uL (1.4-6.5)
== END | disposition home or self-care (01) ==
LOC: C.LABSPEC 16:40
PROVIDERS: ATTEND Internal Medicine
DX: R10.9 Unspecified abdominal pain (principal)

== ENCOUNTER 2017-12-25 20:15 | Emergency (ER) | payer OTHER ==
[~2017-12-25] VITALS: Ht 190.5 cm; Wt 87.1 kg
[2017-12-25 20:21] VITALS: Ht 190.5 cm; Wt 87.1 kg
[2017-12-25] MEDS ORDERED: ONDANSETRON INJ 2 MG/ML 2 ML VIAL IV STA (20:32)
[2017-12-25] MEDS ORDERED: MoRPHine SULFATE 4 MG/ML 1 ML CARP\\VIAL IV STA ×2 (20:32→23:01)
[2017-12-25] MEDS ORDERED: PROB1CAP32 PO (20:52)
[2017-12-25] MEDS ORDERED: [UNRECOGNIZED DRUG - CODE] PO (20:52)
[2017-12-25] MEDS ORDERED: SIME80CH PO (20:52)
[2017-12-25] MEDS ORDERED: PRLSR20 PO (20:52)
[2017-12-25 21:17] LABS: BASO % 0.3 %; BASO ABS # 0.01 K/uL (0-0.2); EOS % 1.3 %; EOS ABS # 0.04 K/uL (0-0.5); HEMATOCRIT 40.9 % (42-52); HEMOGLOBIN 13.5 g/dL (14.0-18.0); LYMPH % 49.8 %; MEAN CORPUSCULAR HEMOGLOBIN 27.4 pg (25-34); MONO % 14.6 %; MONO ABS # 0.44 K/uL (0.11-0.59); NEUT ABS # 1.02 K/uL (1.4-6.5); PLATELET COUNT 216 K/uL (130-400); RED CELL DISTRIBUTION WIDTH CV 13.9 % (11.5-14.5); WHITE BLOOD COUNT 3.01 K/uL (4.8-10.8)
[2017-12-25 21:31] LABS: ALBUMIN 3.9 gm/dl (3.4-5.0); CALCIUM 8.4 mg/dl (8.5-10.1); CREATININE 1.12 mg/dl (0.60-1.40); POTASSIUM 3.6 mmol/L (3.5-5.1)
--- NOTE | 2017-12-25 21:31 | DIAGNOSTIC IMAGING REPORT ---
TWO VIEW CHEST CLINICAL HISTORY: Fever. FINDINGS: PA and lateral chest radiographs are compared to study dated 02/12/2017. The cardiomediastinal silhouette is unremarkable. The lungs and pleural spaces are clear. There is no pneumothorax. The bony thorax appears intact. IMPRESSION: No active disease in the chest. Electronically signed by: Rodrigo Stevens M.D. 12/25/2017 9:29 PM Dictated Date/Time: 12/25/2017 9:28 PM
[2017-12-25 21:34] LABS: TOTAL PROTEIN 8.3 gm/dl (6.4-8.2)
[2017-12-25] MEDS ORDERED: OPTIRAY 320 IV PRN (23:00)
--- NOTE | 2017-12-25 23:18 | DIAGNOSTIC IMAGING REPORT ---
CT SCAN OF THE ABDOMEN AND PELVIS WITH IV CONTRAST CLINICAL HISTORY: Generalized abdominal pain. COMPARISON STUDY: Abdominal CT dated 03/16/2016. TECHNIQUE: Following the IV administration of 94 cc of Optiray 320, CT scan of the abdomen and pelvis is performed from the lung bases to the proximal femora. Images are reviewed in the axial, sagittal, and coronal planes. IV contrast was administered without complication. A dose lowering technique was utilized adhering to the principles of ALARA. The Examination is degraded by motion artifact. CT DOSE: 347.46 mGy.cm FINDINGS: Lung bases: The heart is normal in size and without pericardial effusion. The lung bases are clear. Liver: The contrast-enhanced liver is normal in size, contour, and attenuation. There is no intrahepatic biliary ductal dilatation. The hepatic veins and portal veins are patent. Gallbladder: Unremarkable. Spleen: Normal in size and attenuation. Pancreas: Unremarkable. Adrenal glands: Unremarkable. Kidneys: The contrast enhanced kidneys are normal in size and without hydronephrosis. The kidneys enhance symmetrically. Abdominal vasculature: The abdominal aorta is normal in course and caliber noting mild and age advanced atherosclerotic calcification. Bowel: The small bowel and colon are normal in course and caliber. The appendix is well-visualized and normal. Peritoneum: There is no intraperitoneal free air or abdominal ascites. Lymphadenopathy: None. Pelvic viscera: The bladder, prostate, and seminal vesicles are normal as visualized. Skeletal structures: No lytic or blastic lesions are seen. A bone island is incidentally noted in the left proximal femur. IMPRESSION: There are no acute infectious or inflammatory findings in the abdomen or pelvis. Electronically signed by: Rodrigo Stevens M.D. 12/25/2017 11:17 PM Dictated Date/Time: 12/25/2017 11:12 PM
[2017-12-25] MEDS ORDERED: HYOS1TAB PO (23:43)
[2017-12-26] VITALS: BP 155/100; PULSE 56; TEMP 37.2; O2SAT 98
--- NOTE | 2017-12-26 01:46 | EMERGENCY ROOM VISIT NOTE ---
History Report prepared by James: Jace Duggan Under the Supervision of: Dr. Emanuel Jade M.D. First contact with patient: 20:24 Chief Complaint: FEVER Stated Complaint: CHILLS, FEVER, AB PAIN, NEVER PAIN TIMES 1 WK History of Present Illness The patient is a 37 year old male who presents to the Emergency Room with complaints of severe, constant abdominal pain and pressure beginning 1 week ago. He states that the pain occasionally radiates to his back and sides, but notes that the pain is primary isolated to his upper quadrant. The patient reports feeling extremely gassy. He reports taking Gas-X several times, but states that it did not alleviate his symptoms. The patient notes experiencing nausea and persistent watery diarrhea alongside his abdominal pain for the past week. He denies vomiting. The patient states that he developed a fever of 100 last night. He denies shortness of breath, blood in his stool, history of crones , history of inflammatory bowel disease, burning urination, hematuria, recent antibiotic use, recent travel, or recent exposure to ill individuals. Source of History: patient Onset: 1 week ago. Position: abdomen Symptom Intensity: severe Quality: pressure, other Timing: constant Modifying Factors (Worsening): other (None ) Modifying Factors (Relieving): other (None ) Associated Symptoms: + fevers, + nausea, + diarrhea, No SOB, No vomiting, No urinary symptoms Review of Systems See HPI for pertinent positives & negatives. A total of 10 systems reviewed and were otherwise negative. Past Medical & Surgical Medical Problems: (1) Boxer's metacarpal fracture, neck, closed (2) Tonsillitis (3) Ulcer Family History Cancer Diabetes mellitus Hypertension Social History Smoking Status: Current Every Day Smoker Alcohol Use: none Drug Use: none Marital Status: , in relationship Housing Status: lives with significant other Occupation Status: unemployed Current/Historical Medications Scheduled Omeprazole (Prilosec), 20 MG PO DAILY Probiotic Product (Probiotic Colon Support), 1 CAP PO DAILY Simethicone (Gas-X), 1 DOSE PO UD Sodium Polystyrene Sulfonate (Kayexalate Susp), 1 DOSE PO UD Scheduled PRN Hyoscyamine Sulfate (Levsin), 0.125 MG PO Q6 PRN for Pain Allergies Coded Allergies: No Known Allergies (Unverified , 12/25/17) Physical Exam Vital Signs Date Time Temp Pulse Resp B/P (MAP) Pulse Ox O2 Delivery O2 Flow Rate FiO2 12/26/17 00:00 37.2 56 18 155/100 98 12/25/17 22:00 76 18 113/76 100 Room Air 12/25/17 20:21 37.3 81 18 170/120 100 Room Air Physical Exam Constitutional: Vital signs reviewed. Eyes: Pupils are equal round reactive to light. Conjunctiva are noninjected. ENT: Pharynx is clear without erythema or exudate. Mucous membranes are moist. Neck supple without meningeal signs. Respiratory: Clear to auscultation bilaterally. Breath sounds are equal bilaterally. Cardiovascular: Regular rate and rhythm. No rubs or gallops. GI: Diffuse abdominal tenderness, no CVA tenderness. Bowel sounds are present. Musculoskeletal: No peripheral edema. Integumentary: No cyanosis. Neurological: The patient is awake and alert. No focal deficits. Psychiatric: Normal affect. Medical Decision & Procedures ER Provider Diagnostic Interpretation: Radiology results as stated below per my review and the radiologist's interpretation: [~ rep ct add3]] TWO VIEW CHEST CLINICAL HISTORY: Fever. FINDINGS: PA and lateral chest radiographs are compared to study dated 02/12/2017. The cardiomediastinal silhouette is unremarkable. The lungs and pleural spaces are clear. There is no pneumothorax. The bony thorax appears intact. IMPRESSION: No active disease in the chest. Electronically signed by: Rodrigo Stevens M.D. 12/25/2017 9:29 PM Dictated Date/Time: 12/25/2017 9:28 PM [~ rep ct add3]] CT SCAN OF THE ABDOMEN AND PELVIS WITH IV CONTRAST CLINICAL HISTORY: Generalized abdominal pain. COMPARISON STUDY: Abdominal CT dated 03/16/2016. TECHNIQUE: Following the IV administration of 94 cc of Optiray 320, CT scan of the abdomen and pelvis is performed from the lung bases to the proximal femora. Images are reviewed in the axial, sagittal, and coronal planes. IV contrast was administered without complication. A dose lowering technique was utilized adhering to the principles of ALARA. The Examination is degraded by motion artifact. CT DOSE: 347.46 mGy.cm FINDINGS: Lung bases: The heart is normal in size and without pericardial effusion. The lung bases are clear. Liver: The contrast-enhanced liver is normal in size, contour, and attenuation. There is no intrahepatic biliary ductal dilatation. The hepatic veins and portal veins are patent. Gallbladder: Unremarkable. Spleen: Normal in size and attenuation. Pancreas: Unremarkable. Adrenal glands: Unremarkable. Kidneys: The contrast enhanced kidneys are normal in size and without hydronephrosis. The kidneys enhance symmetrically. Abdominal vasculature: The abdominal aorta is normal in course and caliber noting mild and age advanced atherosclerotic calcification. Bowel: The small bowel and colon are normal in course and caliber. The appendix is well-visualized and normal. Peritoneum: There is no intraperitoneal free air or abdominal ascites. Lymphadenopathy: None. Pelvic viscera: The bladder, prostate, and seminal vesicles are normal as visualized. Skeletal structures: No lytic or blastic lesions are seen. A bone island is incidentally noted in the left proximal femur. IMPRESSION: There are no acute infectious or inflammatory findings in the abdomen or pelvis. Electronically signed by: Rodrigo Stevens M.D. 12/25/2017 11:17 PM Dictated Date/Time: 12/25/2017 11:12 PM Laboratory Results 12/25/17 20:55 Red Blood Count 4.93, Mean Corpuscular Volume 83.0, Mean Corpuscular Hemoglobin 27.4, Mean Corpuscular Hemoglobin Concent 33.0, Mean Platelet Volume 10.0, Neutrophils (%) (Auto) 34.0, Lymphocytes (%) (Auto) 49.8, Monocytes (%) (Auto) 14.6, Eosinophils (%) (Auto) 1.3, Basophils (%) (Auto) 0.3, Neutrophils # (Auto ) 1.02, Lymphocytes # (Auto) 1.50, Monocytes # (Auto) 0.44, Eosinophils # (Auto ) 0.04, Basophils # (Auto) 0.01 12/25/17 20:55 Test 12/25/17 20:55 White Blood Count 3.01 K/uL (4.8-10.8) Red Blood Count 4.93 M/uL (4.7-6.1) Hemoglobin 13.5 g/dL (14.0-18.0) Hematocrit 40.9 % (42-52) Mean Corpuscular Volume 83.0 fL (80-100) Mean Corpuscular Hemoglobin 27.4 pg (25-34) Mean Corpuscular Hemoglobin Concent 33.0 g/dl (32-36) Platelet Count 216 K/uL (130-400) Mean Platelet Volume 10.0 fL (7.4-10.4) Neutrophils (%) (Auto) 34.0 % Lymphocytes (%) (Auto) 49.8 % Monocytes (%) (Auto) 14.6 % Eosinophils (%) (Auto) 1.3 % Basophils (%) (Auto) 0.3 % Neutrophils # (Auto) 1.02 K/uL (1.4-6.5) Lymphocytes # (Auto) 1.50 K/uL (1.2-3.4) Monocytes # (Auto) 0.44 K/uL (0.11-0.59) Eosinophils # (Auto) 0.04 K/uL (0-0.5) Basophils # (Auto) 0.01 K/uL (0-0.2) RDW Standard Deviation 42.0 fL (36.4-46.3) RDW Coefficient of Variation 13.9 % (11.5-14.5) Immature Granulocyte % (Auto) 0.0 % Immature Granulocyte # (Auto) 0.00 K/uL (0.00-0.02) Urine Color YELLOW Urine Appearance CLEAR (CLEAR) Urine pH 7.0 (4.5-7.5) Urine Specific Earling 1.023 (1.000-1.030) Urine Protein NEG (NEG) Urine Glucose (UA) NEG (NEG) Urine Ketones NEG (NEG) Urine Occult Blood NEG (NEG) Urine Nitrite NEG (NEG) Urine Bilirubin NEG (NEG) Urine Urobilinogen NEG (NEG) Urine Leukocyte Esterase NEG (NEG) Anion Gap 5.0 mmol/L (3-11) Est Creatinine Clear Calc Drug Dose 106.9 ml/min Estimated GFR () 96.1 Estimated GFR (Non- 82.9 BUN/Creatinine Ratio 10.4 (10-20) Calcium Level 8.4 mg/dl (8.5-10.1) Total Bilirubin 0.5 mg/dl (0.2-1) Direct Bilirubin 0.2 mg/dl (0-0.2) Aspartate Amino Transf (AST/SGOT) 25 U/L (15-37) Alanine Aminotransferase (ALT/SGPT) 25 U/L (12-78) Alkaline Phosphatase 106 U/L (45-117) Total Protein 8.3 gm/dl (6.4-8.2) Albumin 3.9 gm/dl (3.4-5.0) Lipase 154 U/L (73-393) Laboratory results as reviewed by me. Medications Administered Medications (Trade) Dose Ordered Sig/Shaun Route Start Time Stop Time Status Last Admin Dose Admin Morphine Sulfate (MoRPHine SULFATE INJ) 4 mg ONE STAT IV 12/25/17 20:32 12/25/17 20:34 DC 12/25/17 20:57 4 MG Ondansetron HCl (Zofran Inj) 4 mg NOW STAT IV 12/25/17 20:32 12/25/17 20:34 DC 12/25/17 20:57 4 MG Morphine Sulfate (MoRPHine SULFATE INJ) 4 mg NOW STAT IV 12/25/17 23:01 12/25/17 23:02 DC 12/25/17 23:01 4 MG ED Course 2049: The patient was evaluated in room B6. A complete history and physical exam was performed. 2031: Ordered Zofran Inj 4mg IV and Morphine Sulfate 4mg IV 2300: Ordered Morphine Sulfate 4mg IV. 2339: I discussed test results with the patient. He still has gassy pain. I recommend that he follow up with his doctor and a GI specialist. 0000: Upon reevaluation, the patient appeared to have improvement of his symptoms. I discussed tonight's findings with him. He verbalized agreement of the treatment plan. he was discharged home. Medical Decision This is a 37-year-old male presents with abdominal pain and diarrhea. Differential diagnosis includes enteritis, colitis, inflammatory bowel disease, appendicitis, irritable bowel syndrome, food intolerance. I did perform a limited focused review of portions of the patient's old chart on the electronic medical record. The patient has had no recent pertinent visits to this hospital. I did evaluate the patient as noted above. The patient is presenting with abdominal pain for the past week with diarrhea. He is tender diffusely. IV access was established. I did treat him with IV morphine and Zofran. I did order and personally review the patient's urine analysis as described above. I did order and review the patient's blood work as noted in the electronic medical record. He does have leukopenia but this is chronic for him. I did order a CT of the abdomen and pelvis. I did review the images myself as well as the radiology report as described above. There are no acute findings. I did discuss the test results with the patient. I did recommend he follow-up closely with his doctor and/or Dr. Mondragon of gastroenterology for further evaluation. He was discharged with a prescription for Levsin. Medication Reconcilliation Current Medication List: was personally reviewed by me Blood Pressure Screening Patient's blood pressure: Elevated blood pressure Blood pressure disposition: Referred to PCP The patient is hypertensive. Impression Primary Impression: Diffuse abdominal pain Additional Impression: Leukopenia Scribe Attestation The scribe's documentation has been prepared under my direct and personally reviewed by me in its entirety. I confirm that the note above accurately reflects all work, treatment, procedures, and medical decision making performed by me. Departure Information Dispostion Home / Self-Care Prescriptions Hyoscyamine Sulfate (Levsin) 0.125 Mg Tab 0.125 MG PO Q6 Y for Pain, #20 TAB Prov: Emanuel Jade M.D. 12/25/17 Referrals Poli Cosby M.D. (PCP) Forms HOME CARE DOCUMENTATION FORM, IMPORTANT VISIT INFORMATION Patient Instructions ED Abdominal Pain Unkn Cause Male, My [facility] Additional Instructions You have been examined and treated today on an emergency basis only. This is not a substitute for, or an effort to provide, complete comprehensive medical care. It is impossible to recognize and treat all injuries or illnesses in a single emergency department visit. It is therefore important that you follow up closely with your physician and/or Dr. Mondragon of gastroenterology. Call as soon as possible for an appointment. Return for worsening symptoms or if you develop fever, black or tarry stools or any other concerning symptoms. Problem Qualifiers Additional Impression: Leukopenia Leukopenia type: unspecified Qualified Codes: D72.819 - Decreased white blood cell count, unspecified
== END 2017-12-26 | disposition home or self-care (01) ==
LOC: C.EDB 20:17
DX: R10.9 Unspecified abdominal pain (principal); D72.819 Decreased white blood cell count, unspecified; R19.7 Diarrhea, unspecified; F17.200 Nicotine dependence, unspecified, uncomplicated; Z83.3 Family history of diabetes mellitus; Z82.49 Family history of ischemic heart disease and other diseases of the circulatory system

== ENCOUNTER → 2018-04-04 | Outpatient (CLI) | payer OTHER ==
[~2018-04-04] MED LIST changes: +HYOS1TAB PO; -PRED20TA PO; +PRLSR20 PO; +PROB1CAP32 PO; +SIME80CH PO; +[UNRECOGNIZED DRUG - CODE] PO
--- NOTE | 2018-04-13 09:00 | CODING QUERY NO DIAGNOSIS ---
TREATMENT RENDERED WITHOUT A DIAGNOSIS Dr. 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 Please assist us with providing a diagnosis/symptom for the test(s) below: A diagnosis/symptom was not documented on your Order. A valid diagnosis/symptom is required to bill all insurances. Please remember that we are unable to code a diagnosis of rule out, probable, possible, questionable, or suspected. Tests that require a diagnosis: * C DIFF REAL TIME PCR DIAGNOSIS: * GIARDIA AG, STOOL DIAGNOSIS: * CONCENTRATION FOR INFECT AGNT DIAGNOSIS: * CRYPTOSPOR AG BY IFA DIAGNOSIS: DATE OF SERVICE: 04/04/18 Provider Signature: Date: Thank you [facility] Information Management Once completed, please kindly fax back to [phone] For questions please call [phone]
== END | disposition home or self-care (01) ==
LOC: C.LABSPEC 12:07
PROVIDERS: ATTEND Internal Medicine
DX: R19.7 Diarrhea, unspecified (principal); R63.4 Abnormal weight loss; R10.9 Unspecified abdominal pain

== ENCOUNTER → 2018-04-05 | Outpatient (CLI) | payer OTHER | END | disposition home or self-care (01) | LOC: C.LAB 14:17 | PROVIDERS: ATTEND Internal Medicine Gastroenterology | DX: R10.9 Unspecified abdominal pain (principal) ==

== ENCOUNTER → 2018-04-10 | Outpatient (CLI) | payer OTHER ==
--- NOTE | 2018-04-10 08:53 | DIAGNOSTIC IMAGING REPORT ---
ABDOMEN COMPLETE (US) CLINICAL HISTORY: 37 years-old Male presenting with ABDOMINAL PAIN, midline abdominal pain, nausea, vomiting, and diarrhea for multiple months. TECHNIQUE: Real-time grayscale and limited color Doppler ultrasound imaging of the abdomen was performed. COMPARISON: CT from 12/25/2017. FINDINGS: Pancreas: Visualized portions of the pancreatic head and body normal. Liver: Normal echogenicity and echotexture. The liver measures 16.0 cm in maximal sagittal dimension. No sonographic evidence of hepatic mass. Main portal vein patent with normal directional flow. Biliary: No intrahepatic biliary ductal dilatation. Common bile duct measures up to 5 mm in diameter. Gallbladder: No evidence of gallstones, gallbladder wall thickening, gallbladder distention, or pericholecystic fluid or inflammatory change. Sonographic Courtney's sign negative. Spleen: Normal in echogenicity and size, measuring 8.2 cm in length. Kidneys: Normal in size and echogenicity. Right kidney measures 11.5 cm, and left kidney measures 10.3 cm. No hydronephrosis. Vasculature: Visualized portions of the IVC and abdominal aorta normal. Ascites: None. Other: None. IMPRESSION: No sonographic evidence of acute intra-abdominal pathology. Electronically signed by: Kapil Burnett M.D. 04/10/2018 8:52 AM Dictated Date/Time: 04/10/2018 8:48 AM
== END | disposition home or self-care (01) ==
LOC: C.ULTR 08:01
PROVIDERS: ATTEND Internal Medicine Gastroenterology
DX: R10.9 Unspecified abdominal pain (principal)